=== PATIENT | female | born 1990 | race Caucasian/White ===

== ENCOUNTER 2016-05-03 15:42 | Emergency (ER) | payer SELFPAY ==
[2016-05-03 16:27] VITALS: BP 158/114
[2016-05-03 18:06] LABS: Anion Gap 20 mmol/L; Blood Urea Nitrogen 8 mg/dL (7-17); Calcium 9.1 mg/dL (8.4-10.2); Carbon Dioxide 21 mmol/L (22-30); Chloride 100.1 mmol/L (98-107); Glucose 82 mg/dL (65-100); Potassium 3.6 mmol/L (3.6-5.0); Sodium 137 mmol/L (137-145)
[2016-05-03 19:34] LABS: Hematocrit 37.6 % (30.3-42.9); Hemoglobin 11.9 gm/dl (10.1-14.3); Mean Corpuscular HGB Conc 32 % (30-34); Mean Corpuscular Volume 73 fl (79-97); Platelet Count 242 K/mm3 (140-440); Red Blood Count 5.14 M/mm3 (3.65-5.03); Red Cell Distribution Width 15.7 % (13.2-15.2); White Blood Count 6.8 K/mm3 (4.5-11.0)
[2016-05-03 19:50] LABS: Mean Corpuscular Hemoglobin 23 pg (28-32)
[2016-05-03 20:27] LABS: Bilirubin,Urine NEG (Negative); Blood,Urine NEG (Negative); Ketones,Urine 80 mg/dL (Negative); Leukocyte Esterase,Urine TR (Negative); Mucus,Urine 3+ /HPF; Nitrite,Urine NEG (Negative)
[2016-05-03] MEDS ORDERED: MOTRIN PO ONE (22:09)
--- NOTE | 2016-05-03 22:09 | Emergency Department Report ---
- General Chief Complaint: Syncope Stated Complaint: CHEST PAIN/HEAD PAIN/LIGHT HEADED Time Seen by Provider: 05/03/16 21:47 Source: patient Mode of arrival: Ambulatory Limitations: No Limitations - History of Present Illness Initial Comments: Clinical female presents to the emergency room with cough or congestion last 2 days. Patient's complaints of dry cough since few days. Also complains of body ache and low-grade fever. Patient states that every time she coughs she feels dizzy and lightheaded. Denies any shortness of breath. MD Complaint: cough, rhinorrhea, nasal congestion -: Gradual (few) Severity: mild Severity scale (0 -10): 2 Quality: dull Consistency: constant Worsens With: activity Context: sick contacts (son) Associated Symptoms: fever, myalgias, rhinorrhea, nasal congestion Treatments Prior to Arrival: none - Related Data Previous Rx's Medication Instructions Recorded Last Taken Type Azithromycin [Zithromax Z-JORDAN] 0 mg PO DAILY #1 pack 05/03/16 Unknown Rx Cetirizine HCl [ZyrTEC] 10 mg PO DAILY #20 tab.chew 05/03/16 Unknown Rx predniSONE [Deltasone] 40 mg PO QDAY #10 tab 05/03/16 Unknown Rx Allergies Allergy/AdvReac Type Severity Reaction Status Date / Time No Known Allergies Allergy Unverified 05/03/16 16:28 ED Review of Systems ROS: Stated complaint: CHEST PAIN/HEAD PAIN/LIGHT HEADED Other details as noted in HPI Comment: All other systems reviewed and negative Constitutional: denies: chills, fever Eyes: denies: eye pain, eye discharge, vision change ENT: denies: ear pain, throat pain Respiratory: cough. denies: shortness of breath, wheezing Cardiovascular: denies: chest pain, palpitations Endocrine: no symptoms reported Gastrointestinal: denies: abdominal pain, nausea, diarrhea Genitourinary: denies: urgency, dysuria, discharge Musculoskeletal: denies: back pain, joint swelling, arthralgia Skin: denies: rash, lesions Neurological: denies: headache, weakness, paresthesias Psychiatric: denies: anxiety, depression Hematological/Lymphatic: denies: easy bleeding, easy bruising ED Past Medical Hx - Past Medical History Previous Medical History?: No Additional medical history: chronic cyst - Surgical History Past Surgical History?: No - Social History Smoking Status: Never Smoker Substance Use Type: None - Medications Home Medications: Home Medications Medication Instructions Recorded Confirmed Last Taken Type Azithromycin [Zithromax Z-JORDAN] 0 mg PO DAILY #1 pack 05/03/16 Unknown Rx Cetirizine HCl [ZyrTEC] 10 mg PO DAILY #20 tab.chew 05/03/16 Unknown Rx predniSONE [Deltasone] 40 mg PO QDAY #10 tab 05/03/16 Unknown Rx ED Physical Exam - General Limitations: No Limitations General appearance: alert, in no apparent distress - Head Head exam: Present: atraumatic, normocephalic - Eye Eye exam: Present: normal appearance - ENT ENT exam: Present: mucous membranes moist - Neck Neck exam: Present: normal inspection - Respiratory Respiratory exam: Present: normal lung sounds bilaterally. Absent: respiratory distress - Cardiovascular Cardiovascular Exam: Present: regular rate, normal rhythm. Absent: systolic murmur, diastolic murmur, rubs, gallop - GI/Abdominal GI/Abdominal exam: Present: soft, normal bowel sounds - Extremities Exam Extremities exam: Present: normal inspection - Back Exam Back exam: Present: normal inspection - Neurological Exam Neurological exam: Present: alert, oriented X3, CN II-XII intact - Psychiatric Psychiatric exam: Present: normal affect, normal mood - Skin Skin exam: Present: warm, dry, intact, normal color. Absent: rash ED Course Vital Signs 05/03/16 16:22 Temperature 100.8 F H Pulse Rate 102 H Respiratory 18 Rate Blood Pressure 158/114 O2 Sat by Pulse 100 Oximetry ED Medical Decision Making - Lab Data Result diagrams: 05/03/16 19:26 05/03/16 17:29 - EKG Data EKG shows normal: sinus rhythm Rate: normal - EKG Data Interpretation: normal EKG - Radiology Data Radiology results: report reviewed Critical care attestation.: If time is entered above; I have spent that time in minutes in the direct care of this critically ill patient, excluding procedure time. ED Disposition Clinical Impression: Acute bronchitis with bronchospasm Disposition: DISCHARGED TO HOME OR SELFCARE Is pt being admited?: No Does the pt Need Aspirin: No Condition: Good Instructions: Acute Bronchitis (ED) Prescriptions: Azithromycin [Zithromax Z-JORDAN] 0 mg PO DAILY #1 pack Cetirizine HCl [ZyrTEC] 10 mg PO DAILY #20 tab.chew predniSONE [Deltasone] 40 mg PO QDAY #10 tab Referrals: PRIMARY CARE, [Primary Care Provider] - 3-5 Days Forms: Work/School Release Form(ED)
== END 2016-05-03 22:40 | disposition home or self-care (01) ==
LOC: ED 15:42
DX: J20.9 Acute bronchitis, unspecified (principal)
CPT/HCPCS: 36415; 80048; 81001; 81025; 84484; 85027; 87400; 93005; 93010; 99283

== ENCOUNTER 2016-10-22 09:42 | Emergency (ER) | payer SELFPAY ==
--- NOTE | 2016-10-22 09:52 | Emergency Department Report ---
Stated Complaint: SOB Time Seen by Provider: 10/22/16 09:47 - HPI History of Present Illness: PT c/o bump to chest x 2-3 years PT c/o sob x 2 weeks PT c/o fatigue x 2 weeks PT also c/o elevated bp x a couple of days. PT states she was unable to donate plasma - ROS Review of Systems: lmp 8-5-17 + urinary frequency + dry mouth - Exam Physical Exam: GCS 15 mildly tachycardic no cva tenderness MSE screening note: Focused history and physical exam performed. Due to findings the following was ordered: ekg, labs ED Disposition for MSE Condition: Stable
[2016-10-22 10:15] VITALS: BP 160/102
[2016-10-22 10:26] LABS: Basophils % (Auto) 0.5 % (0.0-1.8); Eosinophils % (Auto) 1.6 % (0.0-4.3); Hematocrit 37.7 % (30.3-42.9); Hemoglobin 12.3 gm/dl (10.1-14.3); Mean Corpuscular HGB Conc 33 % (30-34); Mean Corpuscular Volume 74 fl (79-97); Platelet Count 244 K/mm3 (140-440); Red Blood Count 5.11 M/mm3 (3.65-5.03); Red Cell Distribution Width 14.1 % (13.2-15.2); White Blood Count 6.6 K/mm3 (4.5-11.0)
[2016-10-22 10:32] LABS: Mean Corpuscular Hemoglobin 24 pg (28-32)
[2016-10-22 10:35] LABS: INR 1.04 (0.87-1.13)
[2016-10-22 10:36] LABS: Partial Thromboplastin Time 27.6 Sec. (24.2-36.6)
[2016-10-22 10:48] LABS: Alanine Aminotransferase 19 units/L (7-56); Albumin 3.5 g/dL (3.9-5); Albumin/Globulin Ratio 0.9 %; Alkaline Phosphatase 91 units/L (35-129); Anion Gap 17 mmol/L; Blood Urea Nitrogen 10 mg/dL (7-17); Calcium 10.3 mg/dL (8.4-10.2); Carbon Dioxide 25 mmol/L (22-30); Chloride 104.4 mmol/L (98-107); Glucose 99 mg/dL (65-100); Potassium 4.2 mmol/L (3.6-5.0); Sodium 142 mmol/L (137-145); Total Protein 7.5 g/dL (6.3-8.2)
--- NOTE | 2016-10-22 11:03 | XRay Report ---
ROUTINE CHEST, TWO VIEWS: HISTORY: Short of breath. The trachea, heart, mediastinal contour, lung fischer and bony thorax are unremarkable. IMPRESSION: Unremarkable chest x-ray.
== END 2016-10-22 13:45 | disposition left against medical advice (07) ==
LOC: ED 09:42
DX: R06.02 Shortness of breath (principal); R53.83 Other fatigue; Z53.21 Procedure and treatment not carried out due to patient leaving prior to being seen by health care provider
CPT/HCPCS: 36415; 71020; 80053; 82962; 83880; 84484; 84703; 85025; 85610; 85730; 93005; 93010

== ENCOUNTER 2016-12-30 21:45 | Emergency (ER) | payer MEDICAID ==
[2016-12-30 22:05] VITALS: BP 142/68
[2016-12-30 22:33] LABS: Hematocrit 34.5 % (30.3-42.9); Hemoglobin 11.1 gm/dl (10.1-14.3); Mean Corpuscular HGB Conc 32 % (30-34); Mean Corpuscular Volume 71 fl (79-97); Platelet Count 245 K/mm3 (140-440); Red Blood Count 4.88 M/mm3 (3.65-5.03); Red Cell Distribution Width 15.7 % (13.2-15.2); White Blood Count 9.3 K/mm3 (4.5-11.0)
[2016-12-30 22:34] LABS: Mean Corpuscular Hemoglobin 23 pg (28-32)
[2016-12-30 22:45] LABS: Anion Gap 14 mmol/L; BUN/Creatinine Ratio 25; Blood Urea Nitrogen 10 mg/dL (7-17); Calcium 9.7 mg/dL (8.4-10.2); Carbon Dioxide 25 mmol/L (22-30); Glucose 111 mg/dL (65-100); Potassium 4.3 mmol/L (3.6-5.0); Sodium 137 mmol/L (137-145)
[2016-12-31 00:15] LABS: Bacteria,Urine 1+ /HPF (Negative); Bilirubin,Urine NEG (Negative); Blood,Urine NEG (Negative); Ketones,Urine NEG (Negative); Leukocyte Esterase,Urine LG (Negative); Mucus,Urine 3+ /HPF; Nitrite,Urine NEG (Negative); Protein,Urine <15 mg/dL mg/dL (Negative)
== END 2016-12-31 00:51 | disposition left against medical advice (07) ==
LOC: ED 21:45
DX: R06.02 Shortness of breath (principal); Z53.21 Procedure and treatment not carried out due to patient leaving prior to being seen by health care provider
CPT/HCPCS: 36415; 80048; 81001; 85027